=== PATIENT | female | born 1960 | race African-American/Black ===

== ENCOUNTER → 2018-08-07 | Outpatient (CLI) | payer BC ==
[2018-08-07 07:02] LABS: ALANINE AMINOTRANSFERASE 32 U/L (9-52); ALKALINE PHOSPHATASE 86 U/L (38-126); ANION GAP 7 (5-19); ASPARTATE AMINO TRANSFERASE 33 U/L (14-36); BILIRUBIN,DIRECT 0.1 mg/dL (0.0-0.4); BILIRUBIN,TOTAL 0.5 mg/dL (0.2-1.3); BLOOD UREA NITROGEN 19 mg/dL (7-20); CALCIUM 9.6 mg/dL (8.4-10.2); CARBON DIOXIDE 32 mmol/L (22-30); CHLORIDE 103 mmol/L (98-107); CHOLESTEROL 183.19 mg/dL (0-200); GLUCOSE 82 mg/dL (75-110); POTASSIUM 4.1 mmol/L (3.6-5.0); SODIUM 141.5 mmol/L (137-145); TOTAL PROTEIN 6.9 g/dL (6.3-8.2); TRIGLYCERIDES 53 mg/dL (<150)
[2018-08-07 07:13] LABS: DIRECT LDL 81 mg/dL (<100)
== END ==
LOC: LAB 06:22
PROVIDERS: ATTEND Specialist
DX: Z13.1 Encounter for screening for diabetes mellitus (principal); Z13.220 Encounter for screening for lipoid disorders; Z13.29 Encounter for screening for other suspected endocrine disorder
CPT/HCPCS: 36415; 80053; 80061; 83036

== ENCOUNTER → 2019-09-26 | Outpatient (CLI) | payer BC ==
[2019-09-26 07:20] LABS: CHOLESTEROL 195.56 mg/dL (0-200); TRIGLYCERIDES 55 mg/dL (<150)
[2019-09-26 07:30] LABS: DIRECT LDL 82 mg/dL (<100)
== END ==
LOC: LAB 06:42
PROVIDERS: ATTEND Specialist
DX: Z13.1 Encounter for screening for diabetes mellitus (principal); Z13.220 Encounter for screening for lipoid disorders
CPT/HCPCS: 36415; 80061; 83036

== ENCOUNTER 2019-11-14 06:49 | Day surgery (SDC) | payer BC ==
[2019-11-14] MEDS ORDERED: PROPOFOL INJ 200 MG/20 ML VIAL IV ONE (07:29)
--- NOTE | 2019-11-14 09:20 | Operative Report ---
Operative Report DATE OF SURGERY: 11/14/19 Operative Report: The risk, benefits and alternatives of the procedure including the risk of bleeding, perforation requiring surgery have been explained to the patient in detail and informed consent has been obtained. Patient is taken back to the endoscopy suite and placed in the left, lateral decubital position. Timeout was called. Propofol medication is administered. Rectal examination is done which did not reveal any masses, tears or fissures. An Olympus videoscope was introduced into the patient's rectum. The scope was then carefully guided all the way to the cecum. The cecum was identified by the usual anatomical landmarks of the ileocecal valve as well as the appendiceal office. Photodocumentation is obtained. Scope was then sequentially pulled back via the various segments of the colon including the ascending colon, hepatic flexure, transverse colon, splenic flexure, descending colon finding to the rectosigmoid portions of the colon. Retroflexion maneuvers performed. PREOPERATIVE DIAGNOSIS: Colorectal cancer screening POSTOPERATIVE DIAGNOSIS: Normal screening colonoscopy OPERATION: Diagnostic colonoscopy SURGEON: AB PERALTA ANESTHESIA: LMAC TISSUE REMOVED OR ALTERED: As noted above. COMPLICATIONS: None. ESTIMATED BLOOD LOSS: None. INTRAOPERATIVE FINDINGS: As noted above. PROCEDURE: Patient tolerated the procedure well. No immediate postprocedure complications are noted. Patient is discharged in good condition. Discharge date 11/14/2019. Discharge diet: Regular. Discharge activity: Regular. 2 to 3-week follow-up to discuss findings. Patient is instructed call the office or proceed to the emergency room should there be any further problems questions. Surveillance in 10 years
[2019-11-14 09:57] VITALS: BP 119/68
== END 2019-11-14 10:25 | disposition home or self-care (01) ==
LOC: END 06:49
PROVIDERS: ATTEND Internal Medicine Gastroenterology
DX: Z12.11 Encounter for screening for malignant neoplasm of colon (principal); E89.0 Postprocedural hypothyroidism; Z88.5 Allergy status to narcotic agent
CPT/HCPCS: 45378; 00812; J2704; 812

== ENCOUNTER 2020-03-13 06:27 | Emergency (ER) | payer BC ==
[2020-03-13 06:34] VITALS: BP 123/75
--- NOTE | 2020-03-13 07:57 | RADIOLOGY REPORT (SQ) ---
CLINICAL HISTORY: poss foreign body. COMPARISON: None. TECHNIQUE: XR FINGERS 03/13/2020 12:00 AM [employer] FINDINGS: There is no fracture. Joint spaces are preserved. Soft tissues are unremarkable. IMPRESSION: No definite radiopaque foreign body.
[2020-03-13] MEDS ORDERED: CEPHALEXIN 500 MG CAPSULE PO ONE (08:10)
[2020-03-13] MEDS ORDERED: DIPH/PERTUSS(ACELL)/TETANUS VAC/PF 0.5 ML SYR (>=10YO) IM ONE (08:11)
--- NOTE | 2020-03-13 08:11 | ER Document Report ---
ED Hand/Wrist Injury - General Chief Complaint: Finger Injury Stated Complaint: FALL Time Seen by Provider: 03/13/20 08:07 Primary Care Provider: WALTER ROCHA MD [Primary Care Provider] - Follow up as needed Notes: CHIEF COMPLAINT: Puncture wound right fifth finger HPI: 60-year-old female presenting for puncture wound to the base of the right fifth finger that occurred yesterday approximately for 5 PM. Patient was jogging and fell on a bridge. States a tamar nail punctured the base of the right fifth finger. Denies numbness or tingling in the finger. Presenting for tetanus shot today and to have the wound evaluated ROS: See HPI - all other systems were reviewed and are otherwise negative Constitutional: no fever Integumentary: no rash Allergy: no hives Musculoskeletal: + extremity pain or swelling Neurological: no numbness/tingling, no weakness MEDICATIONS: I agree with the patient medications as charted by the RN. ALLERGIES: I agree with the allergies as charted by the RN. PAST MEDICAL HISTORY/PAST SURGICAL HISTORY: Reviewed and agree as charted by RN. SOCIAL HISTORY: Reviewed and agree as charted by RN. FAMILY HISTORY: No significant familial comorbid conditions directly related to patient complaint EXAM: Reviewed vital signs as charted by RN. CONSTITUTIONAL: Alert and oriented and responds appropriately to questions. Well-appearing; well-nourished HEAD: Normocephalic; atraumatic EYES: Conjunctivae clear, sclerae non-icteric ENT: normal nose; no rhinorrhea; moist mucous membranes NECK: Supple without meningismus CARD: symmetric distal pulses RESP: Normal chest excursion without splinting or tachypnea ABD/GI: non-distended BACK: The back appears normal EXT: Normal ROM in all joints; no cyanosis, no effusions, no edema. Patient will fully flex and extend the fifth finger of the right hand without difficulty at the PIP, DIP, MCP region SKIN: Normal color for age and race; warm; dry; good turgor; there is a small puncture wound at the base of the right fifth finger proximal phalange on the radial side measuring approximately 7 mm, slightly stellate. Tissue appears slightly macerated around this but no erythema no palpable foreign body. NEURO: Moves all extremities equally; Motor and sensory function intact PSYCH: The patient's mood and manner are appropriate. Grooming and personal hygiene are appropriate. MDM: 60-year-old female with a small puncture wound that occurred approximately 14 hours ago base of the right fifth finger with a tamar nail. Wound is a puncture type and is now likely too old for closure without increasing risk of infection. Discussed with the patient will put a Steri-Strip over the wound, place her on a course of Keflex update tetanus status. Return for reevaluation for signs of infection which were reviewed TRAVEL OUTSIDE OF THE [place] IN LAST 30 DAYS: No - Related Data Allergies/Adverse Reactions: No Known Allergies Allergy (Verified 11/14/19 07:04) Home Medications: vitamins Past Medical History - Social History Smoking Status: Never Smoker Family History: Reviewed & Not Pertinent - Past Medical History Cardiac Medical History: Denies: Hx Coronary Artery Disease, Hx Heart Attack, Hx Hypertension Pulmonary Medical History: Denies: Hx Asthma, Hx Bronchitis, Hx COPD, Hx Pneumonia Neurological Medical History: Denies: Hx Cerebrovascular Accident, Hx Seizures Musculoskeletal Medical History: Denies Hx Arthritis - Immunizations Hx Diphtheria, Pertussis, Tetanus Vaccination: Yes Physical Exam - Vital signs Vitals: Temp Pulse Resp BP Pulse Ox 97.5 F 57 L 16 123/75 99 03/13/20 06:33 03/13/20 06:33 03/13/20 06:33 03/13/20 06:33 03/13/20 06:33 Course - Vital Signs Vital signs: Temp Pulse Resp BP Pulse Ox 97.5 F 57 L 16 123/75 99 03/13/20 06:33 03/13/20 06:33 03/13/20 06:33 03/13/20 06:33 03/13/20 06:33 - Laboratory Results Critical Laboratory Results Reviewed: No Critical Results - Radiology Results Critical Radiology Results Reviewed: No Critical Results Discharge - Discharge Clinical Impression: Fall Qualifiers: Encounter type: initial encounter Qualified Code(s): W19.XXXA - Unspecified fall, initial encounter Puncture wound of finger of right hand Qualifiers: Encounter type: initial encounter Qualified Code(s): S61.239A - Puncture wound without foreign body of unspecified finger without damage to nail, initial encounter Condition: Stable Disposition: HOME, SELF-CARE Instructions: Puncture Wound ([facility]) Additional Instructions: Keep the wound areas clean and dry as possible. The Steri-Strip will come off over time. Take the Keflex as prescribed. Follow-up for wound check with PCP in 2 to 3 days. If you notice any increasing discharge redness or swelling of the finger return for reevaluation Prescriptions: Cephalexin Monohydrate [Keflex 500 mg Capsule] 500 mg PO Q6H 5 Days #20 capsule Referrals: WALTER ROCHA MD [Primary Care Provider] - Follow up as needed
== END 2020-03-13 08:49 | disposition home or self-care (01) ==
LOC: ER 06:27
DX: S61.236A Puncture wound without foreign body of right little finger without damage to nail, initial encounter (principal); W19.XXXA Unspecified fall, initial encounter; W45.0XXA Nail entering through skin, initial encounter; Y93.02 Activity, running; Y92.89 Other specified places as the place of occurrence of the external cause; Z79.899 Other long term (current) drug therapy; Z23 Encounter for immunization
CPT/HCPCS: 90471; 90715; 99283